=== PATIENT | female | born 1990 | race Caucasian/White ===

== ENCOUNTER → 2017-08-29 | Outpatient (CLI) | payer OTHER ==
--- NOTE | 2017-08-29 17:11 | XR ---
EXAMINATION TYPE: XR thoracic spine 2V DATE OF EXAM: 08/29/2017 COMPARISON: NONE HISTORY: Back pain TECHNIQUE: 3 views FINDINGS: Vertebra have normal spacing and alignment. Posterior elements are intact. There is no thor acic paraspinal mass. IMPRESSION: Normal thoracic spine
--- NOTE | 2017-08-29 17:11 | XR ---
EXAMINATION TYPE: XR lumbosacral spine min 4V DATE OF EXAM: 08/29/2017 COMPARISON: NONE HISTORY: Back pain TECHNIQUE: 5 views FINDINGS: Lumbar vertebra have normal spacing and alignment. Posterior elements are intact. Sacroilia c joints appear normal. IMPRESSION: Normal lumbar spine.
== END | disposition home or self-care (01) ==
LOC: RADXRMAIN 16:49
PROVIDERS: ATTEND Internal Medicine
DX: R52 Pain, unspecified (principal)
CPT/HCPCS: 72070; 72110

== ENCOUNTER → 2019-06-07 | Outpatient (CLI) | payer OTHER ==
[2019-06-07 14:51] LABS: HCT 34.5 % (34.0-46.0); HGB 11.9 gm/dL (11.4-16.0); MCH 31.2 pg (25.0-35.0); MCHC 34.6 g/dL (31.0-37.0); MCV 90.3 fL (80.0-100.0); Mean Platelet Volume 7.1; Platelet Count 258 k/uL (150-450); RBC 3.82 m/uL (3.80-5.40); RDW 12.7 % (11.5-15.5); WBC 8.8 k/uL (3.8-10.6)
[2019-06-07 15:03] LABS: African American GFR (CKD) >90 (>60 ml/min/1.73 sqM); Glucose 94 mg/dL (74-99)
--- NOTE | 2019-06-07 15:19 | US ---
EXAMINATION TYPE: Transabdominal DATE OF EXAM: 06/07/2019 2:12 PM COMPARISON: NONE CLINICAL HISTORY: Z36 CONFIRM DATES. Unsure of dates EXAM PERFORMED: Transabdominal (TA) EXAM MEASUREMENTS: GESTATIONAL AGE / DATING Physician Established: Not yet established Dates by LMP: LMP unknown Dates by First Scan: No previous this is first scan Dates by Current Scan for: (10 weeks/6 days) EDC: 12/28/2019 MATERNAL ANATOMY Uterus: 13.2 x 6.8 x 7.9 cm Right Ovary: 2.2 x 1.8 x 1.4 cm Left Ovary: 2.8 x 2.6 x 2.0 cm Post CDS / Adnexa: wnl Presence of free fluid: No Presence of corpus luteal cyst: Yes, left ovary measuring 1.5 x 1.3 x 1.0 cm Presence of subchorionic bleed: No GESTATION / SURVEY CRL: 3.9 cm (10 weeks/6 days) Yolk Sac (normal less than 6mm): 3 mm Heart Rate: 161 bpm Rhythm: Normal IUP: Viable IUP Date of LMP: LMP unsure Viable IUP with an BART of 12/28/2019 IMPRESSION: Single viable intrauterine corresponding to ultrasound age 10 weeks 6 days with estimated d ate of delivery 12/28/2019
[2019-06-07 19:09] LABS: HIV 1 AB Non-Reactive (Non-Reactive); HIV AB P24 Non-Reactive (Non-Reactive); HIV P24 AG Non-Reactive (Non-Reactive)
[2019-06-07 19:27] LABS: Hemoglobin A1C 5.4 % (4.0-6.0)
== END | disposition home or self-care (01) ==
LOC: RADUSWWP 13:55
PROVIDERS: ATTEND Obstetrics & Gynecology
DX: Z34.91 Encounter for supervision of normal pregnancy, unspecified, first trimester (principal); Z3A.10 10 weeks gestation of pregnancy
CPT/HCPCS: 76801; 82565; 82947; 83036; 85027; 86762; 86780; 86850; 86900; 86901; 87340; 87390

== ENCOUNTER 2019-10-02 19:10 | Outpatient (CLI) | payer OTHER ==
[2019-10-02] MEDS ORDERED: MAGNESIUM SULFATE GM 6 GM in SODIUM CHLORIDE 0.9% 100 ML IVPB ONE (20:04)
[2019-10-02] MEDS ORDERED: LABETALOL 5 MG/ML VIAL MDV IVP PRN ×3 (20:04)
[2019-10-02] MEDS ORDERED: hydrALAZINE HCL 20 MG/ML 1 ML VIAL IVP PRN (20:04)
[2019-10-02 20:08] LABS: Basophils # (A) 0.1 k/uL (0-0.2); Basophils % (A) 1 %; Eosinophils # (A) 0.2 k/uL (0-0.7); Eosinophils % (A) 2 %; HGB 11.3 gm/dL (11.4-16.0); Lymphocytes # (A) 2.5 k/uL (1.0-4.8); Lymphocytes % (A) 26 %; MCHC 35.2 g/dL (31.0-37.0); MCV 93.9 fL (80.0-100.0); Mean Platelet Volume 7.1; Monocytes # (A) 0.4 k/uL (0-1.0); Monocytes % (A) 4 %; Neutrophils # (A) 6.2 k/uL (1.3-7.7); Neutrophils % (A) 65 %; Platelet Count 256 k/uL (150-450); RBC 3.41 m/uL (3.80-5.40); RDW 12.7 % (11.5-15.5); WBC 9.4 k/uL (3.8-10.6)
[2019-10-02] MEDS ORDERED: MAGNESIUM SULFATE-WATER PMX 20 GM in WATER FOR INJECTION 1 500ML.BAG IV SCH (20:15)
[2019-10-02] MEDS ORDERED: LACTATED RINGERS 1,000 ML IV SCH (20:15)
[2019-10-02 20:19] LABS: ALT 30 U/L (9-52); AST 26 U/L (14-36); African American GFR (CKD) >90 (>60 ml/min/1.73 sqM); Blood Urea Nitrogen 10 mg/dL (7-17); LDH 315 U/L (313-618); Non-African American GFR(CKD) >90 (>60 ml/min/1.73 sqM); Uric Acid 3.8 mg/dL (3.7-7.4)
[2019-10-02 20:29] LABS: Amorphous Sediment,Urine Occasional /hpf; Appearance,Urine Cloudy (Clear); Bacteria,Urine Occasional /hpf; Bilirubin,Urine Negative (Negative); Blood,Urine Negative (Negative); Color,Urine Yellow; Glucose,Urine (UA) Negative (Negative); Ketones,Urine Negative (Negative); Leukocyte Esterase,Urine Negative (Negative); Mucus,Urine Rare /hpf; Nitrite,Urine Negative (Negative); Protein,Urine Negative (Negative); RBC,Urine <1 /hpf (0-5); Specific Gravity,Urine 1.016 (1.001-1.035); Squamous Epithelial Cell,Urine 11 /hpf (0-4); Urobilinogen,Urine <2.0 mg/dL (<2.0); WBC,Urine 2 /hpf (0-5)
--- NOTE | 2019-10-02 21:06 | P.TRANS ---
Providers Expected date of discharge: 10/02/19 Attending physician: Zachary Taylor Primary care physician: Stated None Hospital Course: Maria De Jesus is a 29-year-old at 27 weeks gestation who arrives this evening complaining of left-sided back pain. She relates the pain at the present for several days and that is not done significant better. She thought that potentially was sciatic nerve pain but once she got into labor and delivery blood pressure checks were done and they have all been essentially elevated. Her high blood pressure was 170s over 107 and she is had several the 160s over 100-110. One dose of labetalol 20 mg IV push was provided and has brought blood pressures down to the 150s over 90s range. All this is still elevated is at least stable and should require any immediate treatment. Preeclamptic labs were ordered but are all essentially normal. AST/ALTs are normal there is no protein in her urine and her protein to creatinine ratio was 0.18. Unclear if this is some type of atypical preeclampsia or some other uncontrolled hypertension. However in reviewing her notes from the office, none of her blood pressures have been elevated. They have all essentially been in the 110-120/60-70 range. I have no clear reason for the change this going on an as she is only 27 weeks gestation and planning a transfer to a tertiary care center where maternal medicine can evaluate her and rule out any other rare her causes of uncontrolled hypertension and potentially if she needs to be delivered deliver her. I discussed all this with the patient and all questions are answered for her prior to the transfer. On physical exam vital signs again show significant elevations in her blood pressure despite treatment and finding no other cause Heart was regular, lungs were clear abdomen was soft. Essentially nontender. heart tones in the 130s with 10 x 10 accelerations. Extremities are without pain. There is no peripheral or central edema. Deep tendon reflexes are 2+ bilaterally in both upper and lower extremities. No other signs or symptoms of preeclampsia. She does complain of the left-sided back pain which radiates down into her buttock region, however there is no pain or tenderness in the kidney region with palpation or percussion. Assessment intrauterine at 27 weeks with uncontrolled hypertension? Atypical preeclampsia versus severe rapid onset gestational hypertension versus other including pheochromocytoma Plan transfer to maternal- medicine services for second opinion Patient Condition at Discharge: Stable Plan - Transfer Summary Transfer Medications: Active Medications Generic Name Dose Route Start Last Admin Trade Name Nile PRN Reason Stop Dose Admin Hydralazine HCl 10 mg 10/02/19 20:04 Apresoline IVP 10/04/19 20:06 ONCE PRN Hypertension Magnesium Sulfate 20 gm/ IV 500 mls @ 50 mls/hr 10/02/19 20:15 Solution IV .Q10H RUSTY 2 GM/HR Lactated Ringer's 1,000 mls @ 75 mls/hr 10/02/19 20:15 10/02/19 20:05 Lactated Ringers IV 75 mls/hr .[id number] RUSTY Administration Labetalol HCl 80 mg 10/02/19 20:04 Trandate IVP 10/04/19 20:06 ONCE PRN Hypertension Labetalol HCl 40 mg 10/02/19 20:04 Trandate IVP 10/04/19 20:06 ONCE PRN Hypertension
[2019-10-02 22:05] VITALS: BP 157/107; PULSE 97; RESP 18; TEMP 97.6
== END 2019-10-02 21:45 ==
LOC: FBPOP 19:10
PROVIDERS: ATTEND Obstetrics & Gynecology
DX: O13.2 Gestational [pregnancy-induced] hypertension without significant proteinuria, second trimester (principal); Z3A.27 27 weeks gestation of pregnancy; M54.89 Other dorsalgia
CPT/HCPCS: 59025; 96361; 96374; 82570; 84156; 82565; 83615; 84450; 84460; 84520; 84550; 85025; 81001; G0463; 99215

== ENCOUNTER 2019-12-05 15:03 | Inpatient (IN) | payer OTHER ==
[2019-12-05 16:12] LABS: Basophils # (A) 0.1 k/uL (0-0.2); Basophils % (A) 1 %; Eosinophils # (A) 0.2 k/uL (0-0.7); Eosinophils % (A) 3 %; HCT 33.1 % (34.0-46.0); HGB 11.5 gm/dL (11.4-16.0); Lymphocytes # (A) 1.4 k/uL (1.0-4.8); Lymphocytes % (A) 23 %; MCH 32.2 pg (25.0-35.0); MCHC 34.6 g/dL (31.0-37.0); MCV 93.1 fL (80.0-100.0); Mean Platelet Volume 9.4; Monocytes # (A) 0.6 k/uL (0-1.0); Monocytes % (A) 9 %; Neutrophils # (A) 3.7 k/uL (1.3-7.7); Neutrophils % (A) 59 %; Platelet Count 215 k/uL (150-450); RBC 3.56 m/uL (3.80-5.40); WBC 6.2 k/uL (3.8-10.6)
[2019-12-05 16:16] LABS: Appearance,Urine Clear (Clear); Bacteria,Urine Many /hpf; Bilirubin,Urine Negative (Negative); Blood,Urine Negative (Negative); Color,Urine Yellow; Glucose,Urine (UA) Negative (Negative); Ketones,Urine Negative (Negative); Leukocyte Esterase,Urine Negative (Negative); Mucus,Urine Rare /hpf; Nitrite,Urine Negative (Negative); Protein,Urine 1+ (Negative); RBC,Urine 1 /hpf (0-5); Squamous Epithelial Cell,Urine 1 /hpf (0-4); Urobilinogen,Urine <2.0 mg/dL (<2.0); WBC,Urine 3 /hpf (0-5)
[2019-12-05 16:24] LABS: ALT 9 U/L (4-34); AST 19 U/L (14-36); African American GFR (CKD) >90 (>60 ml/min/1.73 sqM); Blood Urea Nitrogen 7 mg/dL (7-17); LDH 311 U/L (313-618); Non-African American GFR(CKD) >90 (>60 ml/min/1.73 sqM); Uric Acid 4.6 mg/dL (3.7-7.4)
[2019-12-05] MEDS ORDERED: MAGNESIUM SULFATE-WATER PMX 4 GM in WATER FOR INJECTION 1 100ML.BAG IVPB ONE (17:01)
[2019-12-05] MEDS ORDERED: LABETALOL 5 MG/ML VIAL MDV IVP PRN (17:01)
[2019-12-05] MEDS ORDERED: hydrALAZINE HCL 20 MG/ML 1 ML VIAL IVP PRN ×3 (17:01)
[2019-12-05] MEDS ORDERED: LABETALOL SYRINGE 5 MG/ML IVP PRN ×4 (17:01)
--- NOTE | 2019-12-05 17:26 | P.HPOB ---
History of Present Illness H&P Date: 12/05/19 Chief Complaint: Intrauterine at 36 weeks 5 days gestation: Preecl holliia with nathan Pretty is a 29-year-old female G3 to P1 at 36 weeks 5 days gestation who arrives to my office complaining of significant headache. Blood pressure the office was normal but due to her history of possible preeclampsia/gestational hypertension early in the for which she was evaluated at maternal- medicine I did send her to labor and delivery for evaluation. Once here a protein creatinine ratio was Cannulated at 0.8 which is significant for elevated and several of her blood pressures here have been significantly elevated including a 160/90 and 152/110. She has been admitted for induction of labor for severe preeclampsia and mag sulfate has been initiated. Her other labs were grossly normal today. Normal AST/ALT LTH also normal. There is 1+ protein noted in her urine sample. Pertinent labs include O+ blood type, Rh antibody was negative, rubella immune, hepatitis surface antigen/RPR/HIV were all negative. During her at approximately 28 weeks she had an episode of significant elevations in her blood pressure. We had no clear reason for why she would have these elevations and she was therefore transferred to maternal- medicine. At that time there was a marginal cord insertion noted but otherwise following 24-48 hours of observation she was discharged home. The goal this whole time has been to do nonstress tests and biophysical profiles which she has done but was to deliver her after 37 weeks. She initially had been scheduled to have the induction on the which was moved to the today. However due to blood pressure issues and signs and symptoms of preeclampsia with severe features and blood pressures that 2 occasions have been above severe levels we are inducing her today. She is aware that she is remote from delivery and that she may ultimately need a section should she worsen symptomatically or blood pressures are uncontrollable with standard measures. Magnesium sulfate has been initiated at 4 g bolus and then 2 g an hour will check mag level at 1 AM and in the morning. She is aware of risks of mag sulfate did do include symptoms of feeling drunk hot or otherwise unwell as well as potential risk for respiratory difficulties. However, due to her current circumstance with blood pressure elevation and her severe features initially, mag sulfate is required for seizure prophylaxis. Will initiate induction with Pitocin augmentation of labor and artificial rupture membranes. A category 1 tracing is currently noted. She had previously and again been counseled on risks of preeclampsia with seizures and other potential risks explained by both maternal- medicine and myself. On physical exam at this time her heart is regular, lungs are clear, extremities without pain. Abdomen soft and gravid uterus is noted. Extremities show minimal to no peripheral edema and deep tendon reflexes in both upper and lower extremities are +1 to +2. At this time now in evaluation she denies having any more headache. She has no scotomata or epigastric pain either. Her last blood pressure was 175/113 however. Some of elevation in blood pressure may be stress related as she was not expecting Baby today and her father of the baby is an hour away. That said significant concern over severe preeclampsia is noted and we'll plan moving forward with delivery at this time. Gestational hypertensive blood pressure medications have been ordered as well. Past Medical History Past Medical History: No Reported History History of Any Multi-Drug Resistant Organisms: None Reported Past Surgical History: No Surgical Hx Reported Smoking Status: Former smoker Medications and Allergies Home Medications Medication Instructions Recorded Confirmed Type Pnv No.95/Ferrous Fum/Folic AC 1 each PO DAILY 10/02/19 12/05/19 History [ Multivitamin Tablet] Allergies Allergy/AdvReac Type Severity Reaction Status Date / Time No Known Allergies Allergy Verified 12/05/19 15:09 Exam Osteopathic Statement: *. No significant issues noted on an osteopathic structural exam other than those noted in the History and Physical/Consult. Intake and Output 12/05/19 12/05/19 12/05/19 06:59 14:59 22:59 Other: Weight 67.585 kg - OBG Physical Exam Breast: both: normal (no masses) Abdomen: bowel sounds normal, no diffuse tenderness, no bruit present, no guarding noted, no hepatomegaly, no splenomegaly, no mass Vulva: both: normal Vagina: normal moisture, no discharge Cervix: no lesion, no discharge Uterus: normal size, normal contour Adnexa: both: normal Anus/Rectum: normal perianal skin, no rectal mass, no hemorrhoids, heme negative Results Result Diagrams: 12/05/19 15:58 12/05/19 15:58 Abnormal Lab Results - Last 24 Hours (Table) 12/05/19 12/05/19 12/05/19 Range/Units 15:58 15:58 15:58 RBC 3.56 L (3.80-5.40) m/uL Hct 33.1 L (34.0-46.0) % Creatinine 0.49 L (0.52-1.04) mg/dL Lactate Dehydrogenase 311 L (313-618) U/L Urine Protein (Negative) Urine Bacteria (None) /hpf Urine Mucus (None) /hpf U Random Total Protein 48 H (<12) mg/dL 12/05/19 Range/Units 15:58 RBC (3.80-5.40) m/uL Hct (34.0-46.0) % Creatinine (0.52-1.04) mg/dL Lactate Dehydrogenase (313-618) U/L Urine Protein 1+ H (Negative) Urine Bacteria Many H (None) /hpf Urine Mucus Rare H (None) /hpf U Random Total Protein (<12) mg/dL
[2019-12-05] MEDS ORDERED: CARBOPROST TROMETHAMINE 250 MCG/ML 1 ML AMP IM PRN (17:52)
[2019-12-05] MEDS ORDERED: METHYLERGONOVINE 0.2 MG/ML 1 ML AMP IM PRN (17:52)
[2019-12-05] MEDS ORDERED: LIDOCAINE 0.5% (PF) 5 MG/ML (50 ML SDV) SQ PRN (17:52)
[2019-12-05] MEDS ORDERED: OXYTOCIN 10 UNIT/ML 1 ML VIAL IM PRN (17:52)
[2019-12-05] MEDS ORDERED: TERBUTALINE 1 MG/ML VIAL SQ PRN (17:52)
[2019-12-05] MEDS ORDERED: OXYTOCIN 30 UNITS/500 ML NS 30 UNIT in SALINE 1 500ML.BAG IV SCH (18:00)
[2019-12-05 18:04] LABS: INR 0.9 (<1.2); Partial Thromboplastin Time 22.7 sec (22.0-30.0); Prothrombin Time 9.3 sec (9.0-12.0)
[2019-12-05] MEDS: MAGNESIUM SULFATE-WATER PMX 20 GM in WATER FOR INJECTION 1 500ML.BAG IV SCH (18:05)
[2019-12-05] MEDS: LACTATED RINGERS 1,000 ML IV SCH (19:15)
[2019-12-06] MEDS ORDERED: ROPIVACAINE 5MG/ML 20ML VIAL ONE (01:18)
[2019-12-06] MEDS ORDERED: SODIUM CHLORIDE 0.9% 100 ML BAG ONE (01:18)
[2019-12-06] MEDS ORDERED: ePHEDrine SULFATE/0.9% NACL/PF 50 MG/5 ML SYRINGE IV ONE (01:18)
[2019-12-06] MEDS ORDERED: fentaNYL (PF) 50 MCG/ML 5 ML AMP ONE (01:18)
[2019-12-06] MEDS: LACTATED RINGERS 1,000 ML IV SCH (02:05)
[2019-12-06] MEDS: MAGNESIUM SULFATE-WATER PMX 20 GM in WATER FOR INJECTION 1 500ML.BAG IV SCH ×2 (04:21→14:22)
--- NOTE | 2019-12-06 09:09 | P.PROBDLV ---
Vaginal Delivery Note - . Vaginal Delivery Note: Maria De Jesus progressed complete and pushing with spontaneous vaginal delivery of a viable male over an intact perineum. A was delivered from straight OT position. Once baby was delivered a nuchal cord 1 was noted and easily reduced shoulders were then easily deliver with lateral traction. Once baby was fully delivered mouth nares were bulb suctioned and baby was placed on mother's abdomen where the umbilical cord was allowed to pulsate for 1 minute prior to cl amping and cutting due to premature status. Nursery personnel was present and assumed care. Placenta was then delivered intact and Pitocin was added to the IV. He did take approximately 1-2 minutes for the bleeding is slow adequately and Pitocin was taken off the pump and wanted a high rate do most likely to be in labor all night and being on mag sulfate. Once bleeding was improved patient was stable and doing well. Placenta was investigated and appeared intact. She also has no lacerations that are visualized. We'll plan to continue next sulfate for 24 hours. All other questions are answered for her at this time baby is stable with scores of 9 and 9 at one and 5 minutes respectively and the weight was 5 lbs. 14 oz.
[2019-12-06] MEDS ORDERED: SIMETHICONE 80 MG CHEWABLE PO PRN (09:53)
[2019-12-06] MEDS ORDERED: ACETAMINOPHEN TAB 325 MG TAB PO PRN (09:53)
[2019-12-06] MEDS ORDERED: LANOLIN CREAM 5 GM TUBE TOPICAL PRN (09:53)
[2019-12-06] MEDS ORDERED: WITCH HAZEL 1 EACH MED..PAD TOPICAL PRN (09:53)
[2019-12-06] MEDS ORDERED: HYDROCORTISONE 2.5% RECTAL CREAM 30 GM TUBE RECTAL PRN (09:53)
[2019-12-06] MEDS ORDERED: ZOLPIDEM 5 MG TAB PO PRN (09:53)
[2019-12-06] MEDS ORDERED: diphenhydrAMINE 50 MG CAP PO PRN (09:53)
[2019-12-06] MEDS ORDERED: BENZOCAINE/MENTHOL SPRAY 1 GM/SPRAY AEROSOL TOPICAL PRN (09:53)
[2019-12-06] MEDS ORDERED: diphenhydrAMINE 50 MG/ML 1 ML VIAL IVP PRN ×2 (09:53)
[2019-12-06] MEDS ORDERED: diphenhydrAMINE 25 MG CAP PO PRN (09:53)
[2019-12-06] MEDS: OXYTOCIN 20 UNITS/1000 ML NS 1,000 ML IV SCH ×2 (10:45→11:01)
[2019-12-06] MEDS: IBUPROFEN 600 MG TAB PO PRN ×2 (12:17→19:07)
--- NOTE | 2019-12-06 17:24 | P.PN ---
Progress Note - Text Progress Note Date: 12/06/19 Maria De Jesus is doing well this afternoon. She is complaining of being tired but is otherwise asymptomatic from magnesium sulfate. It is almost been 24 hours that she's been on magnesium sulfate and her blood pressures are basically normal with only occasional minimally elevated blood pressure. She denies headache/epigastric pain or visual change this time. We'll plan to reduce mag sulfate to 1 g an hour and then stop it later this evening. All questions are answered for her at this time and she is stable at this time.
[2019-12-06] MEDS: SENNOSIDES-DOCUSATE SODIUM 1 EACH TAB PO SCH (19:07)
[2019-12-06] MEDS ORDERED: SODIUM CHLORIDE 0.65% NASAL SPRAY 44 ML BTL NASAL PRN (20:26)
[2019-12-07] MEDS: MAGNESIUM SULFATE-WATER PMX 20 GM in WATER FOR INJECTION 1 500ML.BAG IV SCH (00:43)
[2019-12-07 07:41] LABS: Basophils % (A) 1 %; Eosinophils # (A) 0.2 k/uL (0-0.7); Eosinophils % (A) 3 %; HCT 24.1 % (34.0-46.0); Lymphocytes % (A) 21 %; MCH 32.9 pg (25.0-35.0); MCHC 34.5 g/dL (31.0-37.0); MCV 95.2 fL (80.0-100.0); Mean Platelet Volume 9.4; Monocytes # (A) 0.4 k/uL (0-1.0); Monocytes % (A) 5 %; Neutrophils # (A) 6.2 k/uL (1.3-7.7); Neutrophils % (A) 68 %; Platelet Count 209 k/uL (150-450); RBC 2.54 m/uL (3.80-5.40); RDW 13.2 % (11.5-15.5); WBC 9.1 k/uL (3.8-10.6)
[2019-12-07] MEDS: SENNOSIDES-DOCUSATE SODIUM 1 EACH TAB PO SCH (07:54)
[2019-12-07 08:01] VITALS: RESP 16
[2019-12-07 08:01] LABS: HGB 8.3 gm/dL (11.4-16.0)
--- NOTE | 2019-12-07 11:31 | DS ---
DISCHARGE SUMMARY PRINCIPAL DIAGNOSIS: day 1 with preeclampsia. HOSPITAL COURSE: Maria De Jesus did very well . She has had no significant signs or symptoms of preeclampsia since delivery. She has been on magnesium sulfate now for greater than 24 hours and she has no issues or problems. She denies a headache. She denies epigastric pain. She denies any visual changes. Deep tendon reflexes are again 2+. In discussing it with her, she would prefer to be able to go home today if at all possible as she is uncomfortable staying in the hospital again. I explained that she does have preeclampsia and we just stopped the magnesium sulfate, but we can watch her through the afternoon and if everything remains stable, we can try and discharge her to home later today. I do not really have an excellent reason to have to keep her since she has no signs or symptoms, but I would like to continue to monitor her and verify that there are no other changes to her condition that might necessitate keeping her in the hospital. Her vital signs again are stable at this time. Blood pressure of 130s over 80s. Her heart is regular, lungs clear, extremities without pain. She does have a sinus infection, but I have warned her against using anything like Sudafed which may cause an increase in her blood pressure. Saline nasal spray was provided. Her abdomen is soft. Her uterus is firm and her lochia is reported to be light. ASSESSMENT: day 1. PLAN: Continue observation through this afternoon with expectation if she continues to be asymptomatic or have no other blood pressure issues, we will plan discharge to home later today. She will plan to follow up in the office on Monday or Monday for a blood pressure check. She is also aware of discharge instructions that do include no heavy lifting, limited stairs and driving, and pelvic rest. If she has any high temperatures, heavy bleeding or severe pain, she needs to report to the emergency room. We also did again discuss in detail preeclamptic signs and symptoms including, but not limited to, headaches that are severe and not getting better with Tylenol, epigastric pain, visual changes, or other signs or symptoms that she just does not feel right and the need to return immediately to the emergency room. We will continue monitoring through this afternoon with likely discharge home later today with continued improvement. MMODL / IJN: [id number] /
[2019-12-07 15:59] VITALS: BP 139/89; PULSE 76; TEMP 97.9
== END 2019-12-07 18:53 | disposition home or self-care (01) | DRG 807 ==
LOC: FBPOP 15:03 → 4FBP 16:59
PROVIDERS: ADMIT Obstetrics & Gynecology; ATTEND Obstetrics & Gynecology
PROC: 3E033VJ Introduction of Other Hormone into Peripheral Vein, Percutaneous Approach (ICD-10-PCS; 2019-12-05)
PROC: 10907ZC Drainage of Amniotic Fluid, Therapeutic from Products of Conception, Via Natural or Artificial Opening (ICD-10-PCS; 2019-12-05)
PROC: 10E0XZZ Delivery of Products of Conception, External Approach (ICD-10-PCS; principal; 2019-12-06)
PROC: 3E0R3BZ Introduction of Anesthetic Agent into Spinal Canal, Percutaneous Approach (ICD-10-PCS; 2019-12-06)
DX: O14.14 Severe pre-eclampsia complicating childbirth (principal); Z37.0 Single live birth; O60.14X0 Preterm labor third trimester with preterm delivery third trimester, not applicable or unspecified; O69.81X0 Labor and delivery complicated by cord around neck, without compression, not applicable or unspecified; J32.9 Chronic sinusitis, unspecified; O43.123 Velamentous insertion of umbilical cord, third trimester; Z3A.36 36 weeks gestation of pregnancy; Z79.899 Other long term (current) drug therapy; Z87.891 Personal history of nicotine dependence; Z87.19 Personal history of other diseases of the digestive system
CPT/HCPCS: 59025; 81001; 82565; 82570; 83615; 83735; 84156; 84450; 84460; 84520; 84550; 85025; 85384; 85610; 85730; 86850; 86900; 86901; 87502; 88307

== ENCOUNTER → 2020-07-07 | Outpatient (CLI) | payer OTHER ==
--- NOTE | 2020-07-07 11:19 | XR ---
EXAMINATION TYPE: XR thoracic spine 2V DATE OF EXAM: 07/07/2020 COMPARISON: 08/29/2017 HISTORY: Pain TECHNIQUE: 3 views submitted FINDINGS: Alignment is anatomic. There is no compression deformities. Vertebral body height and disc interspa mason are maintained. IMPRESSION: 1. No acute abnormality. If symptoms persist or there is concern for disc herniation correlate with MRI.
== END | disposition home or self-care (01) ==
LOC: RADXRMAIN 10:40
PROVIDERS: ATTEND Internal Medicine
DX: M54.6 Pain in thoracic spine (principal)
CPT/HCPCS: 72070

== ENCOUNTER → 2021-05-26 | Outpatient (CLI) | payer OTHER ==
--- NOTE | 2021-05-26 12:53 | XR ---
EXAMINATION TYPE: XR chest 2V DATE OF EXAM: 05/26/2021 COMPARISON: Chest x-ray dated 03/09/2013 HISTORY: Cough, R05 TECHNIQUE: Frontal and lateral views of the chest are obtained. FINDINGS: There is no focal air space opacity, pleural effusion, or pneumothorax seen. There is bro nchial wall thickening. The cardiac silhouette size is within normal limits. The osseous structures are intact. IMPRESSION: Correlate for bronchitis, reactive airways disease, follow-up as indicated.
== END | disposition home or self-care (01) ==
LOC: RADXRMAIN 10:11
PROVIDERS: ATTEND Internal Medicine
DX: J98.09 Other diseases of bronchus, not elsewhere classified (principal)
CPT/HCPCS: 71046

== ENCOUNTER 2023-01-30 19:59 | Emergency (ER) | payer OTHER ==
[2023-01-30 20:09] VITALS: TEMP 98.6
--- NOTE | 2023-01-30 21:58 | ED ---
General Adult HPI - General Chief complaint: Recheck/Abnormal Lab/Rx Stated complaint: blood pressure Time Seen by Provider: 01/30/23 21:58 Source: patient Mode of arrival: ambulatory Limitations: no limitations - History of Present Illness Initial comments: 32-year-old female presents emergency room reporting high blood pressure. States that she does have a history of high blood pressure and was recently started on Norvasc 5 mg. She has been taking medication for approximately one week however her blood pressures continued to be high. She does have a home blood pressure cuff. States that she has been taking her blood pressure however has been extremely anxious because her readings have been high. She denies headache or visual changes. No chest pain or shortness of breath. No weakness or dizziness. She does have a history of gestational hypertension however is not currently . She denies any nausea or vomiting. No other lyndsey viating, precipitating or modifying factors - Related Data Home Medications Medication Instructions Recorded Confirmed amLODIPine [Norvasc] 5 mg PO DAILY 01/30/23 01/30/23 Previous Rx's Medication Instructions Recorded amLODIPine [Norvasc] 10 mg PO DAILY #30 tablet 01/30/23 Allergies Allergy/AdvReac Type Severity Reaction Status Date / Time No Known Allergies Allergy Verified 01/30/23 21:54 Review of Systems ROS Statement: Those systems with pertinent positive or pertinent negative responses have been documented in the HPI. ROS Other: All systems not noted in ROS Statement are negative. Past Medical History Past Medical History: Hypertension History of Any Multi-Drug Resistant Organisms: None Reported Past Surgical History: No Surgical Hx Reported Past Anesthesia/Blood Transfusion Reactions: No Reported Reaction Past Psychological History: No Psychological Hx Reported Smoking Status: Former smoker Past Alcohol Use History: None Reported Past Drug Use History: None Reported General Exam Limitations: no limitations General appearance: alert, in no apparent distress Head exam: Present: atraumatic, normocephalic, normal inspection Eye exam: Present: normal appearance, PERRL, EOMI. Absent: scleral icterus, conjunctival injection, periorbital swelling ENT exam: Present: normal exam, mucous membranes moist Neck exam: Present: normal inspection. Absent: tenderness, meningismus, lymphadenopathy Respiratory exam: Present: normal lung sounds bilaterally. Absent: respiratory distress, wheezes, rales, rhonchi, stridor Cardiovascular Exam: Present: normal rhythm, tachycardia, normal heart sounds. Absent: systolic murmur, diastolic murmur, rubs, gallop, clicks GI/Abdominal exam: Present: soft, normal bowel sounds. Absent: distended, tenderness, guarding, rebound, rigid Extremities exam: Present: normal inspection, full ROM, normal capillary refill. Absent: tenderness, pedal edema, joint swelling, calf tenderness Back exam: Present: normal inspection Neurological exam: Present: alert, oriented X3, CN II-XII intact Psychiatric exam: Present: normal affect, normal mood Skin exam: Present: warm, dry, intact, normal color. Absent: rash Course Vital Signs 01/30/23 01/30/23 01/30/23 20:06 22:57 23:01 Temperature 98.6 F Pulse Rate 125 H 97 100 Respiratory 20 18 18 Rate Blood Pressure 168/119 155/118 161/103 O2 Sat by Pulse 98 96 99 Oximetry EKG Findings - EKG Comments: EKG Findings:: EKG demonstrates sinus tachycardia with a rate of 102. GA interval 205. QRS 93. QTC of 487. No acute ST segment elevations or depressions Medical Decision Making - Medical Decision Making Was pt. sent in by a medical professional or institution (, PA, MANAGER LEGAL, urgent care, hospital, or [place] health care facility...) When possible be specific @ -No Did you speak to anyone other than the patient for history (EMS, parent, family, police, friend...)? What history was obtained from this source @ -No Did you review nursing and triage notes (agree or disagree)? Why? @ -I reviewed and agree with nursing and triage notes Were old charts reviewed (outside hosp., previous admission, EMS record, old EKG, old radiological studies, urgent care reports/EKG's, [place] health care facility records)? Report findings @ -No old charts were reviewed Differential Diagnosis (chest pain, altered mental status, abdominal pain women, abdominal pain men, vaginal bleeding, weakness, fever, dyspnea, syncope, headache, dizziness, GI bleed, back pain, seizure, CVA, palpatations, mental health, musculoskeletal)? @ -hypertension, hypertensive emergency, anxiety, renal artery stenosis EKG interpreted by me (3pts min.). @ -yes X-rays interpreted by me (1pt min.). @ -Not done CT interpreted by me (1pt min.). @ -None done U/S interpreted by me (1pt. min.). @ -None done What testing was considered but not performed or refused? (CT, X-rays, U/S, labs)? Why? @ -None What meds were considered but not given or refused? Why? @ -None Did you discuss the management of the patient with other professionals (professionals i.e. , PA, MANAGER LEGAL, lab, RT, psych nurse, mental health social worker, tax lawyer, teacher, unarmed security officer, child support case officer)? Give summary @ -No Was smoking cessation discussed for >3mins.? @ -No Was critical care preformed (if so, how long)? @ -No Were there social determinants of health that impacted care today? How? (Homelessness, low income, unemployed, alcoholism, drug addiction, transportation, low edu. Level, literacy, decrease access to med. care, shelter, rehab)? @ -No Was there de-escalation of care discussed even if they declined (Discuss DNR or withdrawal of care, Hospice)? DNR status @ -No What co-morbidities impacted this encounter? (DM, HTN, Smoking, COPD, CAD, Cancer, CVA, ARF, Chemo, Hep., AIDS, mental health diagnosis, sleep apnea, morbid obesity)? @ -Htn Was patient admitted / discharged? Hospital course, mention meds given and route, prescriptions, significant lab abnormalities, going to OR and other pertinent info. @ -Upon arrival patient was placed into room 20. A thorough history and physical exam was performed. HCG is negative. I discussed complaining laboratory studies however patient would like to defer at this time and follow- up with her primary care physician. States that she does have laboratory studies which are supposed completed next week. I informed her that she may increase her dose of amlodipine and take 10 mg. She is to check her blood pre ssure twice daily. Keep a log. Take the medications as directed and follow up with her primary care doctor. Complete the laboratory studies and return for any new or worsening symptoms per patient was agreeable to plan she was discharged home in stable condition Undiagnosed new problem with uncertain prognosis? @ -yes Drug Therapy requiring intensive monitoring for toxicity (Heparin, Nitro, Insulin, Cardizem)? @ -No Were any procedures done? @ -No Diagnosis/symptom? @ -accelerated htn Acute, or Chronic, or Acute on Chronic? @ -acute on chronic Uncomplicated (without systemic symptoms) or Complicated (systemic symptoms)? @ -complicated Side effects of treatment? @ -No Exacerbation, Progression, or Severe Exacerbation? @ -exacerbation Poses a threat to life or bodily function? How? (Chest pain, [place], [place], pneumonia, PE, COPD, DKA, ARF, appy, cholecystitis, CVA, Diverticulitis, Homicidal, Suicidal, threat to staff... and all critical care pts) @ -yes - Lab Data Lab Results 01/30/23 Range/Units 22:45 Urine HCG, Qual Not Detected (Not Detectd) Disposition Clinical Impression: High blood pressure Disposition: HOME SELF-CARE Condition: Stable Instructions (If sedation given, give patient instructions): Chronic Hypertension (ED) Additional Instructions: Take Norvasc 10 mg (two tablets) daily. Keep a blood pressure log. Follow-up with your primary care doctor and return for any new or worsening symptoms Prescriptions: amLODIPine [Norvasc] 10 mg PO DAILY #30 tablet Is patient prescribed a controlled substance at d/c from ED?: No Referrals: Vani Collins MD [Primary Care Provider] - 1-2 days Time of Disposition: 22:37
[2023-01-30 23:00] VITALS: RESP 18
[2023-01-30 23:02] VITALS: BP 161/103; PULSE 100
== END 2023-01-30 23:03 | disposition home or self-care (01) ==
LOC: EC 19:59
DX: I10 Essential (primary) hypertension (principal); Z87.891 Personal history of nicotine dependence; Z79.899 Other long term (current) drug therapy
CPT/HCPCS: 81025; 93005; 99283

== ENCOUNTER → 2024-01-15 | Outpatient (CLI) | payer OTHER ==
--- NOTE | 2024-01-15 08:58 | XR ---
EXAMINATION TYPE: XR lumbosacral spine min 4V DATE OF EXAM: 01/15/2024 8:14 AM CLINICAL INDICATION:Female, 33 years old with history of R52 low back pain; COMPARISON: 08/29/2017. TECHNIQUE: XR lumbosacral spine min 4V - Frontal, lateral , bilateral oblique and coned in L5-S1 late ral views of the spine. FINDINGS: No evidence of any acute osseous pathology. No evidence of loss of vertebral body height i s seen. There is normal alignment of the lumbar vertebral bodies. Mild disc space narrowing. Minimal marginal osteophyte formation throughout the visualized spine. There is facet joint arthropathy throu ghout the spine. Scattered at least mild neural foraminal stenosis. IMPRESSION: 1. No acute fracture. 2. Mild multilevel disc degeneration.
== END | disposition home or self-care (01) ==
LOC: RADXRMAIN 07:53
PROVIDERS: ATTEND Internal Medicine
DX: M51.37 Other intervertebral disc degeneration, lumbosacral region (principal)
CPT/HCPCS: 72110

== ENCOUNTER 2024-03-31 07:18 | Emergency (ER) | payer OTHER ==
--- NOTE | 2024-03-31 07:44 | ED ---
ENT HPI - General Chief complaint: Dental/Oral Stated complaint: dental pain Time Seen by Provider: 03/31/24 07:21 Source: patient, RN notes reviewed Mode of arrival: ambulatory Limitations: no limitations - History of Present Illness Initial comments: 34-year-old female presents emergency department with chief complaint of left upper dental pain. Patient states she has had issue for a while with a broken tooth but states that she has had increasing pain. Patient denies any fevers denies any chills states that she has pain increasing swelling of her face. No difficulty swallowing. Patient has taken some Tylenol Motrin prior arrival. - Related Data Home Medications Medication Instructions Recorded Confirmed amLODIPine [Norvasc] 5 mg PO DAILY 01/30/23 01/30/23 Previous Rx's Medication Instructions Recorded amLODIPine [Norvasc] 10 mg PO DAILY #30 tablet 01/30/23 Amoxic-Pot Clav 875-125Mg 1 tab PO Q12HR #20 tab 03/31/24 [Augmentin 875-125] Ibuprofen [Motrin] 600 mg PO Q8HR PRN #20 tab 03/31/24 Allergies Allergy/AdvReac Type Severity Reaction Status Date / Time No Known Allergies Allergy Verified 03/31/24 07:24 Review of Systems ROS Statement: Those systems with pertinent positive or pertinent negative responses have been documented in the HPI. ROS Other: All systems not noted in ROS Statement are negative. Past Medical History Past Medical History: Hyperlipidemia, Hypertension History of Any Multi-Drug Resistant Organisms: None Reported Past Surgical History: No Surgical Hx Reported Past Anesthesia/Blood Transfusion Reactions: No Reported Reaction Past Psychological History: No Psychological Hx Reported Smoking Status: Former smoker Past Alcohol Use History: None Reported Past Drug Use History: None Reported General Exam Limitations: no limitations General appearance: alert, in no apparent distress Head exam: Present: atraumatic, normocephalic, normal inspection Eye exam: Present: normal appearance, PERRL, EOMI. Absent: scleral icterus, conjunctival injection, periorbital swelling ENT exam: Present: mucous membranes moist, TM's normal bilaterally, normal external ear exam. Absent: normal oropharynx (Left upper dental fracture, no drainable abscess) Neck exam: Present: normal inspection, full ROM. Absent: tenderness, meningismus, lymphadenopathy Respiratory exam: Present: normal lung sounds bilaterally. Absent: respiratory distress, wheezes, rales, rhonchi, stridor Cardiovascular Exam: Present: regular rate, normal rhythm, normal heart sounds. Absent: systolic murmur, diastolic murmur, rubs, gallop, clicks Course Vital Signs 03/31/24 07:22 Temperature 97.6 F Pulse Rate 109 H Respiratory 20 Rate Blood Pressure 136/91 O2 Sat by Pulse 99 Oximetry Medical Decision Making - Medical Decision Making Was pt. sent in by a medical professional or institution (DESTINEE Stubbs, C[employer] FILLING MACHINE OPERATOR, urgent care, hospital, or halfway...) When possible be specific @ -No Did you speak to anyone other than the patient for history (EMS, parent, family, police, friend...)? What history was obtained from this source @ -No Did you review nursing and triage notes (agree or disagree)? Why? @ -I reviewed and agree with nursing and triage notes Were old charts reviewed (outside hosp., previous admission, EMS record, old EKG, old radiological studies, urgent care reports/EKG's, halfway records)? Report findings @ -No old charts were reviewed Differential Diagnosis (chest pain, altered mental status, abdominal pain women, abdominal pain men, vaginal bleeding, weakness, fever, dyspnea, syncope, headache, dizziness, GI bleed, back pain, seizure, CVA, palpatations, mental health, musculoskeletal)? @ -Dental abscess, tooth ache, dental fracture dental infection EKG interpreted by me (3pts min.). @ -None X-rays interpreted by me (1pt min.). @ -None done CT interpreted by me (1pt min.). @ -None done U/S interpreted by me (1pt. min.). @ -None done What testing was considered but not performed or refused? (CT, X-rays, U/S, labs)? Why? @ -None What meds were considered but not given or refused? Why? @ -None Did you discuss the management of the patient with other professionals (professionals i.e. DESTINEE Stubbs, C[employer] FILLING MACHINE OPERATOR, lab, RT, psych nurse, director of social services, crate repairer, teacher, search and rescue officer, employment case manager)? Give summary @ -No Was smoking cessation discussed for >3mins.? @ -No Was critical care preformed (if so, how long)? @ -No Were there social determinants of health that impacted care today? How? (Homelessness, low income, unemployed, alcoholism, drug addiction, transportation, low edu. Level, literacy, decrease access to med. care, nursing home, rehab)? @ -No Was there de-escalation of care discussed even if they declined (Discuss DNR or withdrawal of care, Hospice)? DNR status @ -No What co-morbidities impacted this encounter? (DM, HTN, Smoking, COPD, CAD, Cancer, CVA, ARF, Chemo, Hep., AIDS, mental health diagnosis, sleep apnea, morbid obesity)? @ -None Was patient admitted / discharged? Hospital course, mention meds given and route, prescriptions, significant lab abnormalities, going to OR and other pertinent info. @ -Discharge patient has dental fracture left upper with no drainable abscess. Patient will be placed on antibiotics, provided analgesics will follow-up with dentist and return parameters were discussed. Undiagnosed new problem with uncertain prognosis? @ -No Drug Therapy requiring intensive monitoring for toxicity (Heparin, Nitro, Insulin, Cardizem)? @ -No Were any procedures done? @ -No Diagnosis/symptom? @Dental infection, dental fracture Acute, or Chronic, or Acute on Chronic? @ -Acute Uncomplicated (without systemic symptoms) or Complicated (systemic symptoms)? @ -Uncomplicated Side effects of treatment? @ -No Exacerbation, Progression, or Severe Exacerbation? @ -No Poses a threat to life or bodily function? How? (Chest pain, [place], [place], pneumonia, PE, COPD, DKA, ARF, appy, cholecystitis, CVA, Diverticulitis, Homicidal, Suicidal, threat to staff... and all critical care pts) @ -No Disposition Clinical Impression: Fracture of tooth, Dental infection Disposition: HOME SELF-CARE Condition: Stable Instructions (If sedation given, give patient instructions): Toothache (ED), Dental Abscess (ED) Additional Instructions: Please return to the Emergency Department if symptoms worsen or any other con cerns. Prescriptions: Amoxic-Pot Clav 875-125Mg [Augmentin 875-125] 1 tab PO Q12HR #20 tab Ibuprofen [Motrin] 600 mg PO Q8HR PRN #20 tab PRN Reason: Pain Is patient prescribed a controlled substance at d/c from ED?: No Referrals: Vani Collins MD [Primary Care Provider] - 1-2 days Time of Disposition: 07:42
[2024-03-31] MEDS: AMOXIC-POT CLAV 875-125MG 1 EACH TAB PO STA (07:53)
[2024-03-31] MEDS: ACET/COD 300 MG/30 MG STARTER PACK 6 TAB BTL PO STA (07:53)
[2024-03-31] MEDS: HYDROcodone/APAP 5-325MG 1 EACH TAB PO STA (07:54)
[2024-03-31 09:04] VITALS: BP 152/88; PULSE 80; RESP 16; TEMP 98
== END 2024-03-31 08:20 | disposition home or self-care (01) ==
LOC: EC 07:18
DX: K03.81 Cracked tooth (principal); K04.7 Periapical abscess without sinus; Z87.891 Personal history of nicotine dependence
CPT/HCPCS: 99282